=== PATIENT | female | born 1990 | race American Indian/Alaskan Native ===

== ENCOUNTER 2017-08-29 09:44 | Emergency (ER) | payer MEDICAID ==
[2017-08-29 10:28] LABS: Basophils % (Auto) 0.2 % (0.0-1.8); Eosinophils # (Auto) 0.2 K/mm3 (0.0-0.4); Eosinophils % (Auto) 3.1 % (0.0-4.3); Hematocrit 37.6 % (30.3-42.9); Hemoglobin 12.6 gm/dl (10.1-14.3); Lymphocytes # (Auto) 2.5 K/mm3 (1.2-5.4); Mean Corpuscular HGB Conc 34 % (30-34); Mean Corpuscular Hemoglobin 31 pg (28-32); Mean Corpuscular Volume 92 fl (79-97); Monocytes # (Auto) 0.5 K/mm3 (0.0-0.8); Monocytes % (Auto) 6.1 % (0.0-7.3); Platelet Count 306 K/mm3 (140-440); Red Blood Count 4.08 M/mm3 (3.65-5.03); Red Cell Distribution Width 13.5 % (13.2-15.2)
[2017-08-29 10:34] LABS: Bilirubin,Urine NEG (Negative); Blood,Urine NEG (Negative); Color,Urine Straw (Yellow); Mucus,Urine FEW /HPF; Nitrite,Urine NEG (Negative); Protein,Urine <15 mg/dL mg/dL (Negative); Urobilinogen,Urine < 2.0 mg/dL (<2.0)
[2017-08-29 10:42] LABS: HCG Qualitative,Urine Negative (Negative)
[2017-08-29 10:50] LABS: Alanine Aminotransferase 38 units/L (7-56); Albumin 4.1 g/dL (3.9-5); BUN/Creatinine Ratio 15; Blood Urea Nitrogen 9 mg/dL (7-17); Calcium 9.1 mg/dL (8.4-10.2); Hemolysis Index 4
[2017-08-29] MEDS ORDERED: ZOFRAN IV ONE (12:12)
[2017-08-29] MEDS ORDERED: NACL 0.9% 1000 ML 1,000 ML IV ONE (12:12)
[2017-08-29] MEDS ORDERED: MORPHINE IV ONE (12:14)
--- NOTE | 2017-08-29 12:16 | Emergency Department Report ---
ED Abdominal Pain HPI - General Chief Complaint: Abdominal Pain Stated Complaint: PELVIC PAIN Time Seen by Provider: 08/29/17 11:52 Source: patient, family (right lower quadrant pain) Mode of arrival: Ambulatory Limitations: No Limitations - History of Present Illness MD Complaint: abdominal pain -: Sudden Location: RLQ Radiation: none Migration to: no migration Severity: severe Severity scale (0 -10): 8 Quality: cramping Consistency: constant Improves With: nothing Worsens With: nothing Context: recent injury (she had a D&C in June and another facility in another state after having retained products status post vaginal delivery) Associated Symptoms: denies other symptoms - Related Data LMP (females 10-50): other ( test today negative. Patient was on a hormone patch postoperative is no longer using the patch patient cannot provide me the name of the medication) Previous Rx's Medication Instructions Recorded Last Taken Type Naproxen [Naprosyn] 500 mg PO BID PRN #20 tablet 08/29/17 Unknown Rx traMADol [Ultram] 50 mg PO Q6HR PRN #12 tablet 08/29/17 Unknown Rx Allergies Allergy/AdvReac Type Severity Reaction Status Date / Time Sulfa (Sulfonamide AdvReac Hives Verified 08/29/17 09:49 Antibiotics) ED Review of Systems ROS: Stated complaint: PELVIC PAIN Other details as noted in HPI Comment: All other systems reviewed and negative Constitutional: no symptoms reported. denies: fever Gastrointestinal: abdominal pain, other (no dysuria. Normal BM yesterday.). denies: nausea, vomiting, diarrhea, constipation, hematemesis, melena, hematochezia Genitourinary: abnormal menses. denies: urgency, dysuria, frequency, hematuria , discharge, dyspareunia Musculoskeletal: denies: back pain ED Past Medical Hx - Past Medical History Previous Medical History?: No - Surgical History Past Surgical History?: Yes Additional Surgical History: DNC in June, after giving - Social History Smoking Status: Current Every Day Smoker Substance Use Type: Alcohol - Medications Home Medications: Home Medications Medication Instructions Recorded Confirmed Last Taken Type Naproxen [Naprosyn] 500 mg PO BID PRN #20 tablet 08/29/17 Unknown Rx traMADol [Ultram] 50 mg PO Q6HR PRN #12 tablet 08/29/17 Unknown Rx ED Physical Exam - General Limitations: No Limitations General appearance: alert - Head Head exam: Present: atraumatic - Eye Eye exam: Present: PERRL - ENT ENT exam: Present: mucous membranes moist - Neck Neck exam: Present: normal inspection - Respiratory Respiratory exam: Present: normal lung sounds bilaterally - Cardiovascular Cardiovascular Exam: Present: regular rate - GI/Abdominal GI/Abdominal exam: Present: soft, tenderness, normal bowel sounds. Absent: distended, guarding (right lower quadrant), rebound, rigid, diminished bowel sounds, hyperactive bowel sounds, hypoactive bowel sounds, organomegaly, mass, bruit, pulsatile mass, hernia - Rectal Rectal exam: Present: deferred - External exam: Present: other (no concern for STDs) - Extremities Exam Extremities exam: Present: full ROM, normal capillary refill. Absent: normal inspection, tenderness - Back Exam Back exam: Present: normal inspection, full ROM. Absent: tenderness, CVA tenderness (R), CVA tenderness (L), muscle spasm - Neurological Exam Neurological exam: Present: alert, oriented X3, CN II-XII intact, normal gait, other - Psychiatric Psychiatric exam: Present: normal affect, normal mood - Skin Skin exam: Present: warm, dry, intact. Absent: rash ED Course Vital Signs 08/29/17 08/29/17 08/29/17 09:51 10:00 15:33 Temperature 98.0 F 98.0 F 98.5 F Pulse Rate 74 74 64 Respiratory 20 16 Rate Blood Pressure 121/80 Blood Pressure 121/80 128/84 [Right] O2 Sat by Pulse 98 100 96 Oximetry - Reevaluation(s) Reevaluation #1: 08/29/17 14:57 The patient presented to the emergency room today with severe right lower quadrant pain. It was acute onset pain this morning. Patient reports that she had a D&C in June [place] a different state. She had to have the D&C because of retained products after her . 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 She is currently on no medications. She is not concerned for STDs. No vaginal discharge or bleeding. No fever. She is taking by mouth fluids. Normal BM yesterday. Patient is ambulatory. She is here with her / boyfriend. Patient reports her last menstrual period was almost a year ago. She states of abnormal menses is normal for her. She also reports that after her surgery she was placed on a hormone patch. She is no longer using the patch. And she cannot give me the details of what the patch was for her Y was being used. She also had an appendectomy when she was in 10th grade. She has no previous history of ovarian cyst. She reports one with one living child. An IV line was inserted and patient given 1 L of normal saline. She was treated for pain. Medication did help with her pain. Patient had a CT scan of her abdomen. Notes were reviewed per radiology. Study was reviewed with Dr. Moss. Labs were noted. There is no fever. No leukocytosis. Urinalysis noted. negative. Reevaluation #2: 08/29/17 pt resting comfortably Reevaluation #3: 08/29/17 15:00 On reassessment patient's blood pressure 106/67 respiratory rate 18 heart rate 75 south 100% temperature 90.8 oral per provider. Discussed with patient and her significant other that she will need follow-up with an [facility] on Thursday. 08/29/17 15:33 Patient ambulatory to the restroom. And taking by mouth liquids. Reports pain has decreased. ED Medical Decision Making - Lab Data Result diagrams: 08/29/17 10:15 08/29/17 10:15 - Radiology Data Radiology results: report reviewed, image reviewed - Medical Decision Making See note. Case discussed with Dr. Moss - Differential Diagnosis rule out acute abdomen Critical care attestation.: If time is entered above; I have spent that time in minutes in the direct care of this critically ill patient, excluding procedure time. ED Disposition Clinical Impression: Ovarian cyst Disposition: - TO HOME OR SELFCARE Is pt being admited?: No Does the pt Need Aspirin: No Condition: Stable Instructions: Ovarian Cyst (ED) Additional Instructions: hydrate well meds as ordered today for pain warm compresses may help He will need to follow up with an [facility] on Thursday. see referral list below. Protected sex to prevent unwanted Return to the emergency room if pain persist. Return to the emergency room if you develop a fever that does not come down with Motrin or Tylenol. In the fever is greater than 100.5. Prescriptions: Naproxen [Naprosyn] 500 mg PO BID PRN #20 tablet PRN Reason: Pain traMADol [Ultram] 50 mg PO Q6HR PRN #12 tablet PRN Reason: Pain Referrals: MARIO HUGGINS MD [Primary Care Provider] - 3-5 Days [facility] [Outside] - 3-5 Days SILVINO AUGUSTIN MD [Staff Physician] - 3-5 Days Time of Disposition: 14:55
[2017-08-29 13:13] LABS: Lipase 50 units/L (13-60)
--- NOTE | 2017-08-29 13:13 | Cat Scan Report ---
CT ABDOMEN AND PELVIS WITH CONTRAST: 08/29/17 09:44:00 CLINICAL: Abdominal pain. History of D&C June 2017. COMPARISON: None. TECHNIQUE: Volumetric acquisition and 1.25 millimeter scan reconstructions after the uneventful intravenous injection of 100 cc Omnipaque 300. Consent was obtained prior to the administration of contrast. Oral contrast was not given. FINDINGS: Abdomen: The lung bases.Normal liver, bile ducts and gallbladder. Normal stomach, duodenum, pancreas and spleen. Normal adrenal glands and kidneys. The renal collecting systems and ureters are nondilated. Normal aorta and inferior vena cava. Mild distention of small bowel with fluid and air.Normal ascending, transverse and descending colon. An appendix is not identified and there are surgical clips in the right lower quadrant. No mass or lymphadenopathy. Mild ascites in the inferior right paracolic gutter.No pneumoperitoneum. Pelvis: The uterus is normal and measures 9.6 x 5.3 x 5.6 cm. The uterine cavity is nondistended and uterine stripe measures 6 mm AP dimension. A 3 cm cyst of the left ovary and normal right ovary. Mild free pelvic fluid. No adnexal mass. Nonspecific wall thickening of the mid sigmoid colon. No evidence of diverticulosis. The rectum is normal. Bone windows demonstrate no bone lesion. IMPRESSION:1. Normal upper abdomen. 2. Status post appendectomy. 3. Normal uterus with no retained products of conception. 4. 3 cm left ovarian cyst. 5. Nonspecific wall thickening of the mid sigmoid colon.
[2017-08-29] MEDS ORDERED: NORCO 5/325 PO ONE (15:03)
[2017-08-29] MEDS ORDERED: MOTRIN PO ONE (15:03)
[2017-08-29 15:34] VITALS: BP 128/84
== END 2017-08-29 15:34 | disposition home or self-care (01) ==
LOC: ED 09:44
DX: N83.201 Unspecified ovarian cyst, right side (principal); F17.200 Nicotine dependence, unspecified, uncomplicated; Z88.2 Allergy status to sulfonamides
CPT/HCPCS: 36415; 74177; 80053; 81001; 81025; 82150; 83690; 85025; 96361; 96374; 96375; 99284; J2270; J2405; J7030; Q9967

== ENCOUNTER 2017-09-02 12:33 | Emergency (ER) | payer MEDICAID ==
[2017-09-02 13:16] VITALS: BP 127/66
[2017-09-02 13:44] LABS: Basophils % (Auto) 0.1 % (0.0-1.8); Eosinophils # (Auto) 0.2 K/mm3 (0.0-0.4); Eosinophils % (Auto) 4.4 % (0.0-4.3); Hematocrit 36.8 % (30.3-42.9); Hemoglobin 12.3 gm/dl (10.1-14.3); Lymphocytes # (Auto) 2.1 K/mm3 (1.2-5.4); Lymphocytes % (Auto) 37.7 % (13.4-35.0); Mean Corpuscular HGB Conc 33 % (30-34); Mean Corpuscular Hemoglobin 31 pg (28-32); Mean Corpuscular Volume 92 fl (79-97); Monocytes # (Auto) 0.6 K/mm3 (0.0-0.8); Monocytes % (Auto) 9.9 % (0.0-7.3); Platelet Count 349 K/mm3 (140-440); Red Blood Count 3.99 M/mm3 (3.65-5.03); Red Cell Distribution Width 13.5 % (13.2-15.2)
[2017-09-02 13:54] LABS: Alanine Aminotransferase 29 units/L (7-56); Albumin 3.9 g/dL (3.9-5); BUN/Creatinine Ratio 13; Blood Urea Nitrogen 8 mg/dL (7-17); Calcium 9.1 mg/dL (8.4-10.2); Hemolysis Index 4
== END 2017-09-03 02:17 | disposition left against medical advice (07) ==
LOC: ED 12:33
DX: R10.9 Unspecified abdominal pain (principal); Z53.21 Procedure and treatment not carried out due to patient leaving prior to being seen by health care provider
CPT/HCPCS: 36415; 80053; 85025